=== PATIENT | female | born 1985 | race African-American/Black ===

== ENCOUNTER 2021-07-30 12:47 | Outpatient (CLI) | payer OTHER, SELFPAY ==
--- NOTE | ~2021-07-30 | US_ITS ---
EXAMINATION: US_OBFEMATADD_US, US_OBFEMATADD_US, US OB /maternal detail EXAM DATE: 07/30/2021 13:48 INDICATION: For dating. 2nd trimester. TECHNIQUE: Pelvic obstetrical multiple gestation transabdominal sonogram was performed by a yassine valera. There are multiple grayscale and Doppler images available for interpretation. There are no ea rlier studies of this gestation for comparison. FINDINGS: There are 3 live intrauterine gestations which all appear to share anteriorly located place nta. There is thin sac separation identified between the gestations. Placental margin to internal cer vical os distance is 5 cm. No evidence of retroplacental hemorrhage. Subjectively expected amount of amniotic fluid index. Baby A has a heart rate 138 bpm, in vertex presentation maternal left side, with crown-rump length 11 .6 cm corresponding to age 17 weeks 3 days, [facility] 01/04/2022. Baby B has heart rate 149 bpm, in transverse presentation posteriorly, with crown-rump length 11.0 cm corresponding to age by ultrasound 16 weeks 6 days, [facility] 01/08. Baby C has a heart rate 158 bpm, in breech presentation on maternal right side, 11.7 cm crown-rump le ngth corresponding to age by ultrasound 17 weeks 4 days, [facility] 01/03. IMPRESSION: Live intrauterine triplets. Reviewed, dictated and finalized at location B. IMPRESSION: Live intrauterine triplets. IMPRESSION: Live intrauterine triplets. IMPRESSION: Live intrauterine triplets.
== END 2021-07-30 12:48 ==
PROVIDERS: Visit Provider Student in an Organized Health Care Education/Training Program
DX: O30.102 Triplet pregnancy, unspecified number of placenta and unspecified number of amniotic sacs, second trimester (principal); Z3A.17 17 weeks gestation of pregnancy
CPT/HCPCS: 76805; 76810